=== PATIENT | female | born 1960 | race Caucasian/White ===

== ENCOUNTER 2019-08-08 21:35 | Emergency (ER) | payer OTHER ==
[~2019-08-08] VITALS: Ht 149.9 cm; Wt 56.2 kg
--- NOTE | 2019-08-08 21:38 | NUR ---
PT BIBRA 76. AAOX3. C/O "TRACH MALFUNCTION, RESISTANCE WHILE TRYING TO SUCTION." RHONCHI HEARD ON BILATERAL LOWER LOBES, PLACED ON VENT. VENT SETTINGS IN NOTES. RT AT BEDSIDE FOR TRACH. PT NOT C/O SOB NOR PAIN. VSS. SAT 98%.
--- NOTE | 2019-08-08 21:40 | NUR ---
RT NOTE LATE ENTRY: Pt rec'd trached via ambu bag 15lpm from [employer]. [facility] noted settings given from Pt's chart from facility. While suctioning pt, resistance noted, but suctioning catheter is able to pass through. Pt able to maintain adequate tidal volumes. MD aware and chest XRAY ordered. Pt awake and alert. Pt shows no signs of resp distress or SOB. Pt sx'd for thick mod amt of bloody secretions. Alarms are set and audible. Vent plugged into red outlet. Ambu bag bedside. Will continue to monitor closely. Addendum: 08/08/19 at 2300 by MIGUEL SANCHEZ RT Amended: Links added.
--- NOTE | 2019-08-08 21:41 | NUR ---
RT AT BEDSIDE
--- NOTE | 2019-08-08 21:42 | NUR ---
Destini dodson in ED - 08/08/19 at 2148 by BASSAMICTOR 115 107/71 99 RT AT BEDSIDE
--- NOTE | 2019-08-08 21:42 | NUR ---
VENT SETTINGS: AC 16, TV 450, PEEP 5. RONCHI HEARD ON BILATERAL LOWER LOBES.
--- NOTE | 2019-08-08 21:47 | NUR ---
PER RT, TRACH MIGHT BE SHORT.
--- NOTE | 2019-08-08 21:56 | NUR ---
PER [facility], NICOLÁS SHAIKH, PT CAME IN WITH A TRACH. ADMISSION DATE AT SCR 07/30/19. MADE AWARE
--- NOTE | 2019-08-08 22:07 | NUR ---
PT ABLE TO COMMUNICATE USING PAPER AND PEN. PT WROTE DOWN THAT SHE HAD TRACH PUT IN A WEEK AGO, NOT SURE WHERE. PT DENIES PAIN. VSS. WILL CONTINUE TO MONITOR.
--- NOTE | 2019-08-08 22:15 | NUR ---
XRAY AT BEDSIDE.
[2019-08-08] MEDS ORDERED: LEVOFLOXACIN 750 MG /D5W 150ML 150 ML IV ONE (22:57)
[2019-08-08] MEDS ORDERED: LEVOFLOXACIN 750 MG /D5W 150ML PIGGYBACK IV ONE (23:00)
[2019-08-08] MEDS ORDERED: ASPI-1169 GT (23:05)
[2019-08-08] MEDS ORDERED: SENN-168 GT (23:05)
[2019-08-08] MEDS ORDERED: MULT9LIQ5 GT (23:05)
[2019-08-08] MEDS ORDERED: POTA20TA83 GT (23:05)
[2019-08-08] MEDS ORDERED: FURO-145 GT (23:05)
[2019-08-08] MEDS ORDERED: FERR324T11 GT (23:05)
[2019-08-08] MEDS ORDERED: PANT40TA4 GT (23:05)
[2019-08-08] MEDS ORDERED: COLL30OI TP (23:05)
[2019-08-08] MEDS ORDERED: AMIN30LI27 GT (23:05)
[2019-08-08] MEDS ORDERED: SILV20CR13 TP (23:05)
[2019-08-08] MEDS ORDERED: HYDR-4384 GT (23:05)
[2019-08-08] MEDS ORDERED: FLUT16SP BNOSTRILS (23:05)
[2019-08-08] MEDS ORDERED: METH-406 GT (23:05)
[2019-08-08] MEDS ORDERED: OMEP20CA15 GT (23:05)
[2019-08-08] MEDS ORDERED: LEVA1.2528 IH (23:05)
--- NOTE | 2019-08-08 23:05 | NUR ---
CRIB TENDER AT BEDSIDE FOR LABS.
[2019-08-08 23:13] LABS: BASOPHILS % (AUTO) 0.1 % (0.0-2.0); EOSINOPHILS % (AUTO) 0.1 % (0.0-6.0); HEMATOCRIT 32 % (33-45); LYMPHOCYTES # (AUTO) 0.2 /CMM (0.8-4.8); LYMPHOCYTES % (AUTO) 1.2 % (20.0-44.0); MEAN CORPUSCULAR HGB CONC 31 g/dl (31.0-36.0); MEAN CORPUSCULAR VOLUME 90 fL (82-100); MONOCYTES # (AUTO) 0.8 /CMM (0.1-1.30); MONOCYTES % (AUTO) 4.5 % (2.0-12.0); NEUTROPHILS # (AUTO) 17.2 /CMM (1.8-8.9); NEUTROPHILS % (AUTO) 94.1 % (43.0-81.0); PLATELET COUNT (AUTO) 564 /CMM (150-450); RED BLOOD CELL COUNT(AUTO) 3.59 MIL/uL (4.0-5.2); WHITE BLOOD COUNT (AUTO) 18.3 K/uL (4.3-11.0)
--- NOTE | 2019-08-08 23:15 | NUR ---
PT C/O GENERALIZED PAIN 11/20, PT WROTE DOWN THAT HER BP IS USUALLY IN THE 90'S. HELD OFF THE MEDS DUE TO BP BEING IN 90'S.
[2019-08-08 23:20] LABS: CALCIUM, SERUM 8.6 mg/dL (8.5-10.1); CREATININE 0.4 mg/dL (0.6-1.3); POTASSIUM 4.4 mmol/L (3.5-5.1)
[2019-08-08 23:25] LABS: ALBUMIN 1.9 g/dL (3.4-5.0); BILIRUBIN,DIRECT 0.1 mg/dL (0.0-0.2); BILIRUBIN,TOTAL 0.3 mg/dL (0.2-1.0)
[2019-08-08] MEDS ORDERED: ONDANSETRON HCL/PF 4 MG/2 ML VIAL IV ONE (23:30)
[2019-08-08] MEDS ORDERED: MORPHINE SULFATE INJ 2 MG/ML DISP.SYRIN IV ONE (23:30)
--- NOTE | 2019-08-08 23:43 | NUR ---
Catheter inserted per sterile protocal. Immediate output 250 ML of urine, color yellow. Sent to lab.
[2019-08-08 23:46] LABS: APPEARANCE,URINE Clear (CLEAR); BILIRUBIN,URINE Negative (NEGATIVE); BLOOD, URINE Negative Ery/uL (NEGATIVE); COLOR,URINE Yellow (YELLOW); KETONES,URINE Negative (NEGATIVE); LEUKOCYTE ESTERASE ,URINE Trace (NEGATIVE); NITRITE, URINE Negative (NEGATIVE); PH,URINE 6.5 (5.0-8.0); PROTEIN,URINE 30 mg/dl (NEGATIVE); UGLUCOSE Negative (NEGATIVE); UROBILINOGEN,URINE 0.2 EU/dL (0.2)
[2019-08-09 00:04] LABS: BACTERIA,URINE Few /HPF (None Seen); RBC,URINE NONE SEEN /HPF (0-2); SQUAMOUS EPITHELIAL CELL,UR Few /HPF (None Seen)
--- NOTE | 2019-08-09 00:15 | NUR ---
Patient is resting comfortably in bed with eyes closed. Easily aroused. VSS.
[2019-08-09] MEDS ORDERED: IV NS 0.9% 500 ML BAG IV ONE (00:30)
--- NOTE | 2019-08-09 00:42 | NUR ---
DR. PERRY ON THE PHONE WITH DR. ANTON FROM [facility]
--- NOTE | 2019-08-09 02:13 | NUR ---
Location: [place] [address] FOR REPORT: [phone] [facility] ETA: [phone]
--- NOTE | 2019-08-09 02:47 | NUR ---
REPORT GIVEN TO ADELE MONZON FOR TY
[2019-08-09] MEDS ORDERED: ONDANSETRON HCL/PF 4 MG/2 ML VIAL ONE (03:09)
[2019-08-09] MEDS ORDERED: MORPHINE SULFATE INJ 2 MG/ML DISP.SYRIN ONE (03:09)
[2019-08-09 03:19] VITALS: BP 111/72
--- NOTE | 2019-08-09 03:20 | NUR ---
REPORT GIVEN TO TRANSPORT NURSE.
--- NOTE | 2019-08-09 03:33 | NUR ---
PT TRANSFERED PER [facility].
--- NOTE | 2019-08-12 13:18 | NUR ---
CALLED [facility] [phone] [phone] [facility] FAX [phone] PT ALREADY ON ISOLATION.
== END 2019-08-09 03:35 | disposition short-term general hospital (02) ==
LOC: ER 21:37
DX: J18.9 Pneumonia, unspecified organism (principal); K56.7 Ileus, unspecified; I10 Essential (primary) hypertension; J45.909 Unspecified asthma, uncomplicated; E78.5 Hyperlipidemia, unspecified; Z98.890 Other specified postprocedural states; Z88.0 Allergy status to penicillin; Z91.018 Allergy to other foods; Z91.013 Allergy to seafood; Z79.899 Other long term (current) drug therapy; Z79.82 Long term (current) use of aspirin
CPT/HCPCS: 36415; 71045; 80048; 80076; 81001; 83605; 85025; 85730; 87040 ×2; 87081; 96365; 96375; 99285; J1956; J2270; J2405; 81000-TC

== ENCOUNTER 2019-09-06 22:09 | Inpatient (IN) | payer OTHER ==
[~2019-09-06] VITALS: Ht 149.9 cm; Wt 50.3 kg
[~2019-09-06 22:09] MED LIST: AMIN30LI27 GT; ASPI-1169 GT; COLL30OI TP; FERR324T11 GT; FLUT16SP BNOSTRILS; FURO-145 GT; HYDR-4384 GT; LEVA1.2528 IH; METH-406 GT; MULT9LIQ5 GT; OMEP20CA15 GT; PANT40TA4 GT; POTA20TA83 GT; SENN-261 GT; SILV20CR13 TP
--- NOTE | 2019-09-06 22:09 | NUR ---
[facility] [address] ACCOMPANIED BY CARMINE ELENA RN, SENT BY PMD FROM [facility] C/O "L DISTAL FEMUR FRACTURE", PER REPORT, PATIENT WAS GIVEN NORCO 5-325MG AT 2030, CELEXA 100MG, AND 2MG DILAUDID AT 1800 IN THE FACILITY. TO ER BED 5, HOOKED TO MONITOR, RT AT BEDSIDE, PATIENT NOTED WITH TRACHEOSTOMY CONNECTED TO VENTILATOR WITH SETTINGS: RATE 12, TIDAL VOLUME 500, PEEP 5, O2 40%. WAS PLACED. DR TAM AT BEDSIDE. PATIENT ABLE TO COMMUNICATE BY WRITING ON A WHITEBOARD.
[2019-09-06] MEDS ORDERED: ONDANSETRON HCL/PF 4 MG/2 ML VIAL ONE (22:35)
[2019-09-06] MEDS ORDERED: MORPHINE SULFATE INJ 2 MG/ML DISP.SYRIN ONE (22:36)
--- NOTE | 2019-09-06 22:41 | NUR ---
PATIENT REFUSED XRAY SHE IS STILL IN PAIN, DOESN'T WANT TO BE MOVED AT ALL. MADE MD AWARE
[2019-09-06 22:46] LABS: BASOPHILS # (AUTO) 0.1 /CMM (0.0-0.2); BASOPHILS % (AUTO) 0.5 % (0.0-2.0); EOSINOPHILS % (AUTO) 0.4 % (0.0-6.0); HEMATOCRIT 31 % (33-45); HEMOGLOBIN 9.9 g/dL (11.5-14.8); LYMPHOCYTES # (AUTO) 3.9 /CMM (0.8-4.8); LYMPHOCYTES % (AUTO) 19.6 % (20.0-44.0); MEAN CORPUSCULAR HGB CONC 32 g/dl (31.0-36.0); MEAN CORPUSCULAR VOLUME 89 fL (82-100); MONOCYTES # (AUTO) 1.1 /CMM (0.1-1.30); MONOCYTES % (AUTO) 5.6 % (2.0-12.0); NEUTROPHILS # (AUTO) 14.8 /CMM (1.8-8.9); NEUTROPHILS % (AUTO) 73.9 % (43.0-81.0); PLATELET COUNT (AUTO) 744 /CMM (150-450)
--- NOTE | 2019-09-06 22:48 | NUR ---
[facility]
--- NOTE | 2019-09-06 22:53 | NUR ---
RECEIVED PT TRACHED ON VENT FROM AMBULANCE. PT HAS SHLY 6XLT PLACED ON AC 12, 500, 40%, +5. RN NOTIFIED WITH THE SETTINGS. 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 VENT ALARMS SET AND AUDIBLE. VENT PLUGGED INTO RED OUTLET. [facility] SU[facility]. Addendum: 09/06/19 at 2256 by DAKSHA UMANA RT Amended: Links added.
[2019-09-06 23:00] LABS: CALCIUM, SERUM 9.3 mg/dL (8.5-10.1); CREATININE 0.7 mg/dL (0.6-1.3); POTASSIUM 4.8 mmol/L (3.5-5.1)
[2019-09-06] MEDS ORDERED: ONDANSETRON HCL/PF 4 MG/2 ML VIAL IVP ONE (23:00)
[2019-09-06] MEDS ORDERED: MORPHINE SULFATE INJ 2 MG/ML DISP.SYRIN IV ONE (23:00)
[2019-09-06 23:06] LABS: ALBUMIN 3.4 g/dL (3.4-5.0); BILIRUBIN,DIRECT 0.1 mg/dL (0.0-0.2); BILIRUBIN,TOTAL 0.3 mg/dL (0.2-1.0); TOTAL PROTEIN, SERUM 7.2 g/dL (6.4-8.2)
--- NOTE | 2019-09-06 23:13 | NUR ---
PATIENT STILL AT 10/10 PS ON L THIGH AREA, MADE AWARE
[2019-09-06] MEDS ORDERED: CRAN3875 GT (23:14)
[2019-09-06] MEDS ORDERED: HYDR-4354 GT (23:14)
[2019-09-06] MEDS ORDERED: CELE100C GT (23:14)
[2019-09-06] MEDS ORDERED: ASCO500C16 GT (23:14)
[2019-09-06] MEDS ORDERED: ACET-2070 GT (23:14)
[2019-09-06] MEDS ORDERED: ZINC50TA69 GT (23:14)
[2019-09-06] MEDS ORDERED: ALBU6.7H9 IH (23:14)
[2019-09-06] MEDS ORDERED: MELA3TAB41 GT (23:14)
[2019-09-06] MEDS ORDERED: SPIR25TA6 GT (23:14)
[2019-09-06] MEDS ORDERED: SELE200T26 GT (23:14)
[2019-09-06] MEDS ORDERED: NA P133E RC (23:14)
[2019-09-06] MEDS ORDERED: BISA-79 PR (23:14)
[2019-09-06] MEDS ORDERED: MAGN400O21 GT (23:14)
[2019-09-06] MEDS ORDERED: FENTANYL PF 100MCG/2ML AMPUL ONE (23:18)
--- NOTE | 2019-09-06 23:25 | NUR ---
BP AT 77/54MMHG, MADE MD AWARE, RECEIVED VERBAL ORDER OF 500CC NS 0.9% BOLUS, CARRIED OUT
[2019-09-06] MEDS ORDERED: IV NS 0.9% 500 ML BAG IV ONE (23:30)
[2019-09-06] MEDS ORDERED: FENTANYL PF 100MCG/2ML AMPUL IV ONE (23:30)
--- NOTE | 2019-09-06 23:37 | NUR ---
REPORT GIVEN TO BARRY PRIETO RN FOR TY
[2019-09-07] VITALS (10 sets, daily range): BP systolic 80–117; BP diastolic 41–71
[2019-09-07] MEDS ORDERED: IV NS 0.9% 250 ML BAG IV ONE
--- NOTE | 2019-09-07 00:10 | NUR ---
XRAY AT BEDSIDE
--- NOTE | 2019-09-07 00:31 | NUR ---
PT REFUSING WEN CATH AT THIS TIME, AWARE
--- NOTE | 2019-09-07 00:59 | NUR ---
PT REFUSED SX AT THIS TIME.
--- NOTE | 2019-09-07 02:17 | NUR ---
PER MECCA FROM [facility], PT WILL BE TRANSFERRED TO [facility], PENDING TRANSFER INFORMATION. DR. SCHOFIELD TO CALL BACK
[2019-09-07] MEDS ORDERED: HYDROCODONE/APAP 5/325MG 1 EACH TABLET ONE (04:07)
--- NOTE | 2019-09-07 04:10 | NUR ---
PER MECCA [facility]UNC[facility] [place], AUTHORIZATION TO ADMIT THE PATIENT TO [facility]
--- NOTE | 2019-09-07 04:21 | NUR ---
DR. TAM ON THE PHONE WITH DR. GREENFIELD
--- NOTE | 2019-09-07 04:28 | NUR ---
CALLED [facility] FOR CONSULT Addendum: 09/07/19 at [address] TAM ON THE PHONE WITH CECI MELENDEZ FROM [facility]
[2019-09-07] MEDS ORDERED: HYDROCODONE/APAP 5/325MG 1 EACH TABLET GT ONE (04:30)
--- NOTE | 2019-09-07 04:38 | NUR ---
CALLED NURSING SUP FOR BED
[2019-09-07] MEDS ORDERED: FENTANYL PF 100MCG/2ML AMPUL ONE ×3 (05:11→13:12)
--- NOTE | 2019-09-07 05:15 | NUR ---
PT STILL C/O SEVERE PAIN. HYPOTENSION ALSO NOTED. MD AWARE.
[2019-09-07] MEDS ORDERED: FENTANYL PF 100MCG/2ML AMPUL IV ONE (05:30)
[2019-09-07] MEDS ORDERED: IV NS 0.9% 1,000 ML IV ONE (05:30)
--- NOTE | 2019-09-07 05:46 | NUR ---
BED 315-2
--- NOTE | 2019-09-07 05:58 | NUR ---
REPORT GIVEN TO NICOLÁS LOUIS FOR TY
--- NOTE | 2019-09-07 07:00 | NUR ---
PT TRANSFERRED PER [facility] PROTOCOL
--- NOTE | 2019-09-07 07:00 | NUR ---
CASKET LINER ADMITTING NOTE RECEIVED PT FROM ER VIA SHASHI. PT A/O X3 AND ABLE TO MAKE NEEDS KNOWN. RESPIRATIONS EVEN AND UNLABORED WITH NO S/S OF ACUTE DISTRESS OR SOB NOTED. PT COMPLAINS OF PAIN TO LEFT HIP AND LEG. PT NOTED WITH GTUBE. PT REFUSES TO BE CHANGED AND FOR ASSESSMENT DUE TO PAIN. SAFETY MEASURES IN PLACE WITH BED IN LOWEST LOCKED POSITION WITH SIDE RAILS UP X 2. ORIENTED PT TO STAFF AND ROOM. CALL LIGHT WITHIN REACH. WILL ENDORSE TO ONCOMING NURSE FOR TY.
[2019-09-07] MEDS ORDERED: ZINC1CAP2 GT (07:36)
[2019-09-07] MEDS ORDERED: HYDR-4384 GT (07:36)
[2019-09-07] MEDS ORDERED: MAGN400O6 GT (07:36)
[2019-09-07] MEDS ORDERED: LACT100027 GT (07:36)
[2019-09-07] MEDS ORDERED: CHLO473M5 MM (07:36)
[2019-09-07] MEDS ORDERED: ALBU6.7H9 IH (07:36)
[2019-09-07] MEDS ORDERED: HYDR4TAB4 GT (07:36)
[2019-09-07] MEDS ORDERED: SODI1TAB66 GT (07:36)
--- NOTE | 2019-09-07 08:00 | NUR ---
GM NOTES PT IN BED, AWAKE, ALERT AND ORIENTED, WRITES ON HER WHITEBOARD FOR COMMUNICATION, WITH COMPLAINT OF PAIN TO LEFT HIP, NOT IN DISTRESS, STILL REFUSING TO BE CHANGED BECAUSE OF PAIN, AWAITING ADMITTING ORDERS TO BE VERIFIED.
[2019-09-07] MEDS ORDERED: IV NS 0.9% 1,000 ML IV PRN ×2 (08:26→20:30)
[2019-09-07] MEDS ORDERED: ALBUTEROL SULFATE INH 18 GM HFA.AER.AD IH PRN (08:30)
[2019-09-07] MEDS ORDERED: BISACODYL (5 MG) 5 MG TABLET.DR GT PRN (08:30)
[2019-09-07] MEDS: HYDROMORPHONE 1 MG/1 ML DISP.SYRIN IV PRN ×2 (08:48→17:52)
[2019-09-07] MEDS ORDERED: ASPIRIN 81 MG TAB.CHEW GT SCH (09:00)
[2019-09-07] MEDS ORDERED: Medication Not On Formulary EA (Cran/Vitc/Mannose/Inulin/Brom (Uti-Stat Liquid) 3,875 MG GT SCH (09:00)
[2019-09-07] MEDS: PANTOPRAZOLE 40 MG/PACK PACK GT SCH (09:16)
[2019-09-07] MEDS ORDERED: PROSOURCE / PROSTAT (PYXIS) 30 ML UDC GT SCH (09:18)
[2019-09-07] MEDS: ASCORBIC ACID 500 MG TABLET GT SCH (09:19)
[2019-09-07] MEDS ORDERED: ENOXAPARIN SODIUM 40 MG/0.4 ML DISP.SYRIN SQ SCH (09:30)
[2019-09-07] MEDS ORDERED: ALBUTEROL FS 2.5 MG/0.5 ML VIAL.NEB NEB PRN (09:30)
[2019-09-07] MEDS ORDERED: ACETAMINOPHEN 650 MG/20.3 ML UDC GT PRN (09:30)
[2019-09-07] MEDS ORDERED: IPRATROPIUM NEB FS 0.5 MG/2.5 ML AMPUL.NEB NEB PRN (09:30)
[2019-09-07] MEDS: MULTIPLE VIT (LYCOPENE/FA/MV,CA,IRON,MIN/LUT)1 TAB GT SCH (10:00)
[2019-09-07] MEDS: PROSOURCE / PROSTAT (PYXIS) 30 ML UDC GT SCH (10:00)
[2019-09-07] MEDS ORDERED: BACITRACIN 50000 UNITS/VIAL ONE (11:09)
[2019-09-07] MEDS: CHLORHEXIDINE GLUCONATE 15 ML UDC MM SCH ×2 (11:31→17:53)
[2019-09-07] MEDS: FLUTICASONE PROPIONATE 16 GM BOTTLE NS SCH (11:31)
--- NOTE | 2019-09-07 11:37 | NUR ---
DIRECTOR SALES NOTES PT IN BED, AWAKE, ALERT, WRITES ON BOARD FOR COMMUNICATION, WEN CATH INSERTED, PT TOLERATED PROCEDURE WELL, PT SEEN BY JASWINDER ORNELAS, PLAN OF CARE AND SURGERY PROCEDURE DISCUSSED WITH PT, AGREED WITH PLAN, PT SIGNED CONSENT FORMS, PAIN MEDS GIVEN FOR PAIN MANAGEMENT, PICKED UP BY O.R. STAFF WITH RT IN STABLE CONDITION.
[2019-09-07] MEDS ORDERED: ALBUTEROL SULFATE INH 18 GM HFA.AER.AD IH SCH (12:00)
[2019-09-07] MEDS ORDERED: ROCURONIUM BROMIDE 50 MG/5 ML ONE (12:00)
[2019-09-07 13:00] LABS: BASOPHILS # (AUTO) 0.1 /CMM (0.0-0.2); BASOPHILS % (AUTO) 0.5 % (0.0-2.0); EOSINOPHILS % (AUTO) 0.1 % (0.0-6.0); HEMATOCRIT 33 % (33-45); LYMPHOCYTES # (AUTO) 1.5 /CMM (0.8-4.8); LYMPHOCYTES % (AUTO) 10.1 % (20.0-44.0); MEAN CORPUSCULAR HGB CONC 30 g/dl (31.0-36.0); MEAN CORPUSCULAR VOLUME 91 fL (82-100); MONOCYTES # (AUTO) 1.2 /CMM (0.1-1.30); NEUTROPHILS # (AUTO) 11.8 /CMM (1.8-8.9); NEUTROPHILS % (AUTO) 81.3 % (43.0-81.0); PLATELET COUNT (AUTO) 596 /CMM (150-450); RED BLOOD CELL COUNT(AUTO) 3.65 MIL/uL (4.0-5.2); WHITE BLOOD COUNT (AUTO) 14.6 K/uL (4.3-11.0)
--- NOTE | 2019-09-07 14:05 | NUR ---
VICE PRESIDENT SUPPLY CHAIN NOTES PT BACK FROM SURGERY, STABLE, AWAKE, TOLERATED WELL, PER BROOKS WESLEY TO START ON [facility], NOTED AND CARRIED OUT, NO BLEEDING NOTED AT LEFT HIP SURGERY SITE, DRESSING DRY AND INTACT.
[2019-09-07] MEDS ORDERED: JEVITY 1.2 CAL 1,000 ML BOTTLE GT PRN (14:30)
[2019-09-07] MEDS: IV LR 1000 ML 1,000 ML IV PRN (16:06)
[2019-09-07] MEDS: ZINC SULFATE 220 MG CAPSULE GT SCH (17:53)
[2019-09-07] MEDS: SODIUM CHLORIDE 1000 MG TABLET GT SCH (17:53)
[2019-09-07] MEDS: SENNOSIDES 8.6 MG TABLET GT SCH (18:00)
[2019-09-07] MEDS ORDERED: SELENOMETHIONINE 200 MCG GT SCH (18:00)
--- NOTE | 2019-09-07 18:50 | NUR ---
LAWN CARE WORKER NOTES PT IN BED, AWAKE, ALERT AND ORIENTED, PAIN MEDS GIVEN ORDERED, STILL WITH COMPLAINT OF PAIN, PT REFUSED SKIN ASSESSMENT AND PHOTOS, STATED IN WRITING THAT SHE STILL HAS PAIN, PT ONLY ALLOWED PHOTO OF GT SITE, REFUSED TO BE REPOSITIONED, F/C DRAING WELL WITH CLEAR, YELLOW URINE, GT FLUSHING WELL, KEPT CLEAN, DRY AND COMFORTABLE, IV FLUIDS INFUSING WELL, ALL NEEDS ATTENDED.
--- NOTE | 2019-09-07 19:30 | NUR ---
pattern grader supervisor: received report from tae mcdonnell at 1900. [facility] dependent with ff setting ac12 tv 500 fio2 40% peep 5, shiley 6 xlt . sinus tachy hr 120. pt a/o x4 able to communicate using her white board. pt has gtube in placed. patent and flushing well, clamped. no gtube feeding pump available on all unit, central supply aware journalism internship aware, md aware. iv access patent and flushing well, infusing with lr at 75ml/hr. pt c/o so much pain 02/20 requesting for pain medication. pt has naylor catheter in placed. bag draining via gravity. pt refusing scd education provided made aware about venous thromboembolism, also pt refusing skin assessment and photo, she added she doesnt want to be turn/move and reposition, educate pt regarding possibility of developing pressure injury. safety precautions for fall initiated, call light in reach will continue monitoring pt.
[2019-09-07] MEDS: CEFAZOLIN 2 GM in IV D5W 100 ML IV SCH (19:35)
--- NOTE | 2019-09-07 19:47 | NUR ---
RT NOTE PT RECEIVED TRACHED ON MECHANICAL VENTILATION. AMBU BAG @ BEDSIDE. SX DONE, TRACH SECURED AND PATENT. ALARMS ON AND AUDIBLE. NO DISTRESS NOTED. CONT. PULSE OX CONNECTED. WILL MONITOR T/O SHIFT. Addendum: 09/07/19 at 1947 by EN NIEVES RT Amended: Links added.
--- NOTE | 2019-09-07 20:08 | NUR ---
Received an order for Covid [address] Yung, noted and carried out, NICOLÁS Hammond notified.
--- NOTE | 2019-09-07 20:15 | NUR ---
rn notes: notified md regarding low bp and high hr 87/57 hr 135-160 highest bp obtained is 93/60 manually. telephone order received to give normal saline 1L bolus now, change dilaudid to 0.5 mg ivp q3hrs prn for 8-10 pain, give norco 5/325 mg tab po q4hrs for pain alternate with tylenol 650 mg tab po q6hrs prn for pain, send ua and give levaquin 500 mg iv x1 dose and he will come for follow up in am. orders read back verfied and carried out
--- NOTE | 2019-09-07 20:20 | NUR ---
rn notes: placed pt on r/o covid, ppe utilized, discussed to pt about reason for r/o.
[2019-09-07] MEDS ORDERED: LEVOFLOXACIN 500 MG /D5W 100ML 500 MG in PREMIX 1 EA IV ONE (20:30)
[2019-09-07] MEDS ORDERED: ACETAMINOPHEN 325 MG TABLET PO PRN (20:30)
--- NOTE | 2019-09-07 20:37 | NUR ---
RN NOTES: UA COLLECTED VIA WEN PORT, CONTACTED LAB FOR VP HR DIVERSITY,ALSO STARTED PT ON 1L NS BOLUS. WILL CONTINUE MONITORING PT.
[2019-09-07 21:20] LABS: APPEARANCE,URINE SL CLOUDY (CLEAR); BILIRUBIN,URINE NEGATIVE (NEGATIVE); BLOOD, URINE LARGE Ery/uL (NEGATIVE); COLOR,URINE YELLOW (YELLOW); KETONES,URINE 15 (NEGATIVE); LEUKOCYTE ESTERASE ,URINE NEGATIVE (NEGATIVE); NITRITE, URINE NEGATIVE (NEGATIVE); PROTEIN,URINE TRACE mg/dl (NEGATIVE); UGLUCOSE NEGATIVE (NEGATIVE); UROBILINOGEN,URINE 0.2 EU/dL (0.2)
[2019-09-07] MEDS ORDERED: LEVOFLOXACIN 500 MG /D5W 100ML 100 ML IV ONE (21:40)
[2019-09-07 21:59] LABS: BACTERIA,URINE 1+ /HPF (None Seen); RBC,URINE 81-100 /HPF (0-2); SQUAMOUS EPITHELIAL CELL,UR 0-2 /HPF (None Seen); WBC,URINE 0-2 /HPF (0-3)
[2019-09-07] MEDS ORDERED: MAGNESIUM HYDROXIDE 30 ML UDC GT PRN (22:00)
[2019-09-07] MEDS ORDERED: Medication Not On Formulary EA (Melatonin 6 MG) GT SCH (22:00)
--- NOTE | 2019-09-07 22:00 | NUR ---
rn notes: pt refused to be turn, reposition, refused for bed bath. education provided to pt.
[2019-09-07] MEDS: HYDROCODONE/APAP 5/325MG 1 EACH TABLET PO PRN (22:03)
--- NOTE | 2019-09-07 22:05 | NUR ---
prn norco: notified of pt's latest bp, per md child to give norco. aware of pt c/o spasm opn left hip area s/p sx, prn norco 5/325 mg administered at this time. will continue to monitor and reassess
--- NOTE | 2019-09-07 23:25 | NUR ---
RN NOTES: COVID SWAB PERFORMED WITNESSED BY AUTO CLEANER MELLISA. SPECIMEN SENT TO LAB
[2019-09-08] VITALS (13 sets, daily range): BP systolic 93–154; BP diastolic 62–94
[2019-09-08] MEDS: JEVITY 1.2 CAL 1,000 ML BOTTLE GT PRN (00:02)
--- NOTE | 2019-09-08 00:03 | NUR ---
prn tylenol: pt c/o muscle cramps on left hip requesting for tylenol. prn tylenol 6560 mg administered via gtube,
[2019-09-08] MEDS: HYDROCODONE/APAP 5/325MG 1 EACH TABLET PO PRN ×5 (01:38→20:13)
--- NOTE | 2019-09-08 01:38 | NUR ---
prn norco: pt c/o 11/20 bilateral hip pain sharp requesting for norco, vs takena nd recorded prior to administering meds. prn norco 5/325 mg administered to pt at this time. will continue to monitor and reassess
[2019-09-08] MEDS: CEFAZOLIN 2 GM in IV D5W 100 ML IV SCH (04:00)
--- NOTE | 2019-09-08 05:33 | NUR ---
PRN NORCO: PT REQUESTING FOR PAIN MEDS, NORCO PS 7/10 ON BILATERAL HIP AREA, PRN NORCO Administered at this time.
--- NOTE | 2019-09-08 06:36 | NUR ---
end of shift report: pt tolerated [facility] vent setting well. ambu bag available at bed side, all clinical alrms audible. remains on sinus tachy hr 112. prn norco administered for c/o muscle spasm on left hip. pt remains to refused for turning and repositioning, refused am care, doesnt want to be move. education provided to pt, tile burner aware. iv access remains patent and flushing well, infusing with lr at 75ml/hr, no s/s of iv infiltration noted. remains afebrile. safety precautions for fall remains engaged, call light in reach,. will endorse to day rn for continuity of care.
--- NOTE | 2019-09-08 07:13 | NUR ---
MORTGAGE SALES MANAGER OPENING NOTES RECEIVED PATIENT IN BED, ASLEEP. PATIENT ON VENT; TOLERATING WELL. PATIENT SHOWS NO SIGN OF PAIN SUCH FACIAL GRIMACING, MOANING OR GUARDING. R HAND IV ACCESS PRESENT INTACT AND INFUSING LR 2 75 MLS/HR. J-TUBE IN PLACE INFUSING JEVITY 1.2 @ 40 MLS/HR FOR [address] PRECAUTIONS IN PLACE; BED IN LOW POSITION AND LOCKED, RAILS UP X2, CALL LIGHT WITHIN REACH. WILL CONTINUE TO MONITOR PATIENT.
[2019-09-08] MEDS: HYDROMORPHONE 1 MG/1 ML DISP.SYRIN IV PRN ×4 (08:10→22:30)
--- NOTE | 2019-09-08 08:18 | NUR ---
GRAPHIC ENGINEER NOTES PATIENT REPORTS PAIN AND ASKING FOR PAIN MEDICATION. BP IS 119/62. DR GREENFIELD ON THE FLOOR AND SAID IT IS OK TO ADMINISTER PRN DILAUDID. MEDICATION ADMINISTERED. WILL REASSESS.
[2019-09-08 08:53] LABS: ALBUMIN 2.8 g/dL (3.4-5.0); BILIRUBIN,TOTAL 0.2 mg/dL (0.2-1.0); CREATININE 0.5 mg/dL (0.6-1.3); PHOSPHORUS 2.9 mg/dL (2.5-4.9); POTASSIUM 3.9 mmol/L (3.5-5.1); TOTAL PROTEIN, SERUM 6.2 g/dL (6.4-8.2)
[2019-09-08] MEDS: ENOXAPARIN SODIUM 40 MG/0.4 ML DISP.SYRIN SQ SCH (09:00)
[2019-09-08] MEDS: PANTOPRAZOLE 40 MG/PACK PACK GT SCH (09:16)
[2019-09-08] MEDS: PROSOURCE / PROSTAT (PYXIS) 30 ML UDC GT SCH (09:16)
[2019-09-08] MEDS: ASCORBIC ACID 500 MG TABLET GT SCH (09:16)
[2019-09-08] MEDS: MULTIPLE VIT (LYCOPENE/FA/MV,CA,IRON,MIN/LUT)1 TAB GT SCH (09:16)
[2019-09-08] MEDS: CHLORHEXIDINE GLUCONATE 15 ML UDC MM SCH ×2 (09:16→17:27)
[2019-09-08] MEDS: FLUTICASONE PROPIONATE 16 GM BOTTLE NS SCH (09:17)
--- NOTE | 2019-09-08 09:41 | NUR ---
VOCATIONAL TRAINING DIRECTOR NOTES RECEIVED A CALL FROM LAB STATING PATIENT RESULT FOR HGB CAME SURPRISINGLY LOW AND THEY NEED TO VERIFY BY DOING A REDRAW. HOLDING LOVENOX WHILE RESULTS ARE NOT UP YET.
[2019-09-08 09:48] LABS: ABG BASE EXCESS -3.2 mmol/L; ABG OXYGEN SATURATION 98.4 % (92.0-98.5); ABG PCO2 39.4 mmHg (35.0-45.0); ABG PH 7.363 (7.350-7.450); ABG PO2 161.1 mmHg (75.0-100.0); AaDO2 78.8 mmHg; MetHb 0.8 % (0.0-1.5); O2Hb 97.6 % (94.0-97.0); SITE, ABG Right Radial; VENT MODE, BG AC 12 500 40% +5
[2019-09-08] MEDS: methylPREDNISolone SOD SUCC 125 MG/2ML VIAL IV SCH ×2 (10:00→17:27)
--- NOTE | 2019-09-08 10:30 | NUR ---
MS RN NOTES PATIENT REFUSES ANY CARE; BED CHANGED AND GOWN WELL. PATIENT WROTE ON HER BOARD NOT TO TOUCH HER AND ITS OK THAT SHE IS WET. SHE REFUSES TO BE MOVED OR ROLLED. WILL TRY AGAIN LATER.
--- NOTE | 2019-09-08 11:04 | NUR ---
MS RN NOTES PATIENT IN PAIN. REQUESTS PAIN MEDICATION. PRN NORCO 5-325 AVAILABLE AND WILL ADMINISTER.
[2019-09-08 11:37] LABS: BASOPHILS % (AUTO) 0.1 % (0.0-2.0); HEMATOCRIT 21 % (33-45); LYMPHOCYTES % (AUTO) 8.6 % (20.0-44.0); MEAN CORPUSCULAR HGB CONC 33 g/dl (31.0-36.0); MEAN CORPUSCULAR VOLUME 89 fL (82-100); MONOCYTES # (AUTO) 1.7 /CMM (0.1-1.30); MONOCYTES % (AUTO) 13.7 % (2.0-12.0); NEUTROPHILS # (AUTO) 9.5 /CMM (1.8-8.9); NEUTROPHILS % (AUTO) 77.6 % (43.0-81.0); PLATELET COUNT (AUTO) 466 /CMM (150-450); RED BLOOD CELL COUNT(AUTO) 2.36 MIL/uL (4.0-5.2); WHITE BLOOD COUNT (AUTO) 12.2 K/uL (4.3-11.0)
[2019-09-08 11:43] LABS: HEMOGLOBIN 6.8 g/dL (11.5-14.8)
[2019-09-08] MEDS ORDERED: IPRATROPIUM/ALBUTEROL INHALER IH SCH (12:00)
[2019-09-08] MEDS: ALBUTEROL SULFATE 8 GM HFA.AER.AD IH SCH ×4 (12:00→23:48)
--- NOTE | 2019-09-08 13:26 | NUR ---
MS MONZON NOTES 1200 VENTONIL UNABLE TO ADMINISTER. PATIENT IS NOT ABLE TO FOLLOW DIRECTIONS AT THIS TIME. Addendum: 09/08/19 at 1347 by MATRA BRADY RN GLEN NOTE
--- NOTE | 2019-09-08 13:47 | NUR ---
RADIOLOGIC TECHNOLOGY INSTRUCTOR NOTES PATIENT IN PAIN (HIPS). PRN PAIN MEDICATION ADMINISTERED (DILAUDID). WILL REASSESS.
[2019-09-08 14:41] LABS: LYMPHOCYTES % (MANUAL) 9 % (16-48); MONOCYTES % (MANUAL) 9 % (0-11.0); NEUTROPHILS % (MANUAL) 82 (42-76)
--- NOTE | 2019-09-08 16:31 | NUR ---
DOOR CUTTER NOTES PATIENT TRANSFERRED TO [facility]. PT ON VENT...TRANSFERRED WITH RT PRESENT. OXYGENATION 100%. RECEIVING NURSE FATIMAH. REPORT GIVEN.
--- NOTE | 2019-09-08 16:45 | NUR ---
RN NOTE Received pt from 315. On vent and GT. No signs of distress. 2 RT on bedside. No signs of pain or discomfort at this time. Will cont to monitor.
[2019-09-08] MEDS: SODIUM CHLORIDE 1000 MG TABLET GT SCH (17:29)
[2019-09-08] MEDS: ZINC SULFATE 220 MG CAPSULE GT SCH (17:29)
[2019-09-08] MEDS: SENNOSIDES 8.6 MG TABLET GT SCH (17:29)
--- NOTE | 2019-09-08 18:45 | NUR ---
RN CLOSING NOTE Patient in bed asleep. No signs of distress. On mechanical vent AC 12 tv 500 Peep 5 fio2 40%. o2 sat is 100% Patient is AO x4 communicates with her white board. Patient has PEG running Jevity 1.5 @ 40ml/hr. Patient has R hand 20g running LR 75ml/hr. No signs of pain or discomfort. Turned and repositioned q2h. Kept clean and dry. All due meds given. Vital signs within normal limits. Safety measure reinforced. Bed locked and on lowest position. Call light within reach. Siderails up x2. Will endorse to lpn medical assistant nurse for claudine.
--- NOTE | 2019-09-08 19:30 | NUR ---
OIL AND GAS DRAFTER NOTE, Patient in awake in bed on mechanical ventilator tolerated settings well, communicates with the board, nsr/tachy on tele monitor with hr 90s and low 100s, iv access in right hand 20g running LR 75ml/hr, patent and intact, with order for blood transfusion, will transfuse as order, gt in placed and feeding infusing as ordered, f/c in placed patency intact with yellow clear urine noted, Safety measure in placed, Bed locked and on lowest position, Call light within reach., s/r of bed up x2, Will continue to monitor patient closely.
--- NOTE | 2019-09-08 19:30 | NUR ---
RN NOTES, PATIENT S/P LEFT HIP SURGERY DRESSING INTACT, NO BLEEDING NOTED, AFEBRILE, ON PAIN MANAGEMENT, WILL ADMINISTER MEDICATION ORDERED.
[2019-09-09] VITALS (15 sets, daily range): BP systolic 110–146; BP diastolic 72–99
[2019-09-09] MEDS: HYDROMORPHONE 1 MG/1 ML DISP.SYRIN IV PRN ×5 (02:39→21:01)
--- NOTE | 2019-09-09 03:30 | NUR ---
RN NOTES, PATIENT ENDORSED TO NICOLÁS PEARCE FOR CONTINUATION OF CARE NO DISTRESS NOTED PATIENT TIN STABLE CONDITION, NO SOB/RESP DISTRESS NOTED, ON PAIN MANAGEMENT DONE WITH SECOND UNIT OF BLOOD, VS STABLE, AFEBRILE.
--- NOTE | 2019-09-09 03:56 | NUR ---
ROUND UP RING HAND OPENING NOTE RECEIVED PATIENT IN BED. A/OX4. ABLE TO COMMUNICATE WITH import2 BOARD. EXTERNAL TELE MONITOR READS NSR - ST. ON A MECHANICAL VENT SETTINGS AC 12. TV 500, FIOS 40, PEEP 5. IN NO RESP DISTRESS. NO S/S PAIN AT THIS TIME. IN NO APPARENT DISTRESS. IV ACCESS IN RIGHT HAND #20 RUNNING LR@75ML/HR. WEN CATHETER IS PRESENT, DRAINING TO GRAVITY, URINE IS YELLOW AND CLEAR. GTUBE IS PRESENT RUNNING JEVITY @40ML/HR. BED IS LOW AND LOCKED HOB ELEVATED IN HIGH FOWLERS, SIDE RIALS UP X2, CALL LIGHT WITHIN REACH. WILL CONTINUE TO MONITOR.
[2019-09-09] MEDS: IV LR 1000 ML 1,000 ML IV PRN (05:13)
[2019-09-09] MEDS: ALBUTEROL SULFATE 8 GM HFA.AER.AD IH SCH ×4 (05:18→23:19)
--- NOTE | 2019-09-09 05:57 | NUR ---
IT RISK AND ASSURANCE SENIOR MANAGER NOTE ADMINISTERED PRN DILAUDID 0.5 MG D/T C/O PAIN 12/21 IN LEGS. WILL CONTINUE TO MONITOR. Addendum: 09/09/19 at 0600 by GENA BEGUM RN WASTE WITNESSED BY WASTE PLACED IN RX DESTROYER.
--- NOTE | 2019-09-09 06:31 | NUR ---
CLERICAL CAR CHECKER CLOSING NOTE PATIENT IN BED. A/OX4. COMMUNICATE WITH WHITE BOARD. EXTERNAL TELE MONITOR READS NSR - ST. ON A MECHANICAL VENT SETTINGS AC 12. TV 500, FIOS 40, PEEP 5. NO DISTRESS. PAIN MANAGED WITH DILAUDID. IV ACCESS MAINTAINED IN RIGHT HAND #20 RUNNING 1UNIT PRBC@125ML/HR. WEN CATHETER IS MAINTAINED, DRAINING TO GRAVITY, URINE IS YELLOW AND CLEAR, OUTPUT 300ML. GTUBE IS MAINTAINED RUNNING JEVITY @40ML/HR. BED REMAINS LOW AND LOCKED HOB ELEVATED IN HIGH FOWLERS, SIDE RIALS UP X2, CALL LIGHT WITHIN REACH. WILL ENDORSE TO NEXT SHIFT.
[2019-09-09] MEDS: HYDROCODONE/APAP 5/325MG 1 EACH TABLET PO PRN ×3 (07:44→19:53)
[2019-09-09] MEDS: MULTIPLE VIT (LYCOPENE/FA/MV,CA,IRON,MIN/LUT)1 TAB GT SCH (08:06)
[2019-09-09] MEDS: methylPREDNISolone SOD SUCC 125 MG/2ML VIAL IV SCH ×2 (08:07→17:25)
[2019-09-09] MEDS: CHLORHEXIDINE GLUCONATE 15 ML UDC MM SCH ×2 (08:07→17:25)
[2019-09-09] MEDS: ASCORBIC ACID 500 MG TABLET GT SCH (08:07)
[2019-09-09] MEDS: ENOXAPARIN SODIUM 40 MG/0.4 ML DISP.SYRIN SQ SCH (08:08)
[2019-09-09] MEDS: PANTOPRAZOLE 40 MG/PACK PACK GT SCH (08:08)
--- NOTE | 2019-09-09 08:09 | NUR ---
PATRIOT MISSILE AIR DEFENSE ARTILLERY NOTES LOVENOX NOT ADMINISTRATED DUE TO LOW HTC6.8
[2019-09-09] MEDS: FLUTICASONE PROPIONATE 16 GM BOTTLE NS SCH (08:12)
[2019-09-09] MEDS: PROSOURCE / PROSTAT (PYXIS) 30 ML UDC GT SCH (08:13)
[2019-09-09 08:35] LABS: BASOPHILS % (AUTO) 0.1 % (0.0-2.0); HEMATOCRIT 42 % (33-45); HEMOGLOBIN 13.8 g/dL (11.5-14.8); LYMPHOCYTES # (AUTO) 0.5 /CMM (0.8-4.8); LYMPHOCYTES % (AUTO) 4.1 % (20.0-44.0); MEAN CORPUSCULAR HGB CONC 33 g/dl (31.0-36.0); MEAN CORPUSCULAR VOLUME 91 fL (82-100); MONOCYTES # (AUTO) 1.4 /CMM (0.1-1.30); NEUTROPHILS % (AUTO) 83.8 % (43.0-81.0); PLATELET COUNT (AUTO) 443 /CMM (150-450); RED BLOOD CELL COUNT(AUTO) 4.65 MIL/uL (4.0-5.2)
[2019-09-09] MEDS ORDERED: FERR325T23 PO (08:35)
[2019-09-09 08:47] LABS: CALCIUM, SERUM 9.5 mg/dL (8.5-10.1); CREATININE 0.7 mg/dL (0.6-1.3); POTASSIUM 4.3 mmol/L (3.5-5.1)
--- NOTE | 2019-09-09 09:00 | NUR ---
Patient refused chest x-xray this morning at 0530
--- NOTE | 2019-09-09 11:27 | NUR ---
WOUND CARE CONSULT: PT REFUSING WOUND CONSULT AND PHOTO/WOUND ASSESSMENT. PER SENDING FACILITY, PT HAS BACK AND SACRAL WOUNDS, PRESENT ON ADMISSION. RECOMMEND SURGICAL CONSULT. DR JC NOTIFIED OF CONSULT REQUEST. DISCUSSED SKIN PROTECTION WITH NURSING STAFF AND TOOTH CUTTER SPUR. WILL SEE PRN.
[2019-09-09] MEDS ORDERED: Z GUARD REMEDY 2 OZ OINT TP PRN (11:30)
[2019-09-09] MEDS: Z GUARD REMEDY 2 OZ OINT TP SCH (11:57)
[2019-09-09] MEDS: JEVITY 1.2 CAL 1,000 ML BOTTLE GT PRN (14:21)
[2019-09-09] MEDS: SODIUM CHLORIDE 1000 MG TABLET GT SCH (17:23)
[2019-09-09] MEDS: ZINC SULFATE 220 MG CAPSULE GT SCH (17:23)
[2019-09-09] MEDS: SENNOSIDES 8.6 MG TABLET GT SCH (17:25)
--- NOTE | 2019-09-09 19:25 | NUR ---
STAMPING DIE MAKER OPENING NOTES RECEIVED PATIENT FROM MORNING SHIFT, ALERT AND ORIENTED X 3. WRITES ON BOARD TO COMMUNICATE. BREATHING REGULAR AND UNLABORED ON MECHANICAL VENTILATOR, CURRENT SETTINGS TOLERATING WELL. RIGHT HAND G20 IV LINE INTACT AND PATENT, FLUSHING WELL WITH NO BLEEDING OR S/S OF INFILTRATION NOTED. ON CARDIAC MONITORING WITH NSR AT 99bpm. GTUBE INTACT WITH NO RESIDUAL ASPIRATED. ON ASPIRATION PRECAUTIONS. WEN CATH PATENT, DRAINING CLEAR YELLOW URINE. NO COMPLAINTS OF PAIN/DISCOMFORT REPORTED AT THIS TIME. BED LOW AND LOCKED ON SEMI FOWLERS POSITION. CALL LIGHT IN REACH. WILL CONTINUE TO MONITOR.
--- NOTE | 2019-09-09 19:27 | NUR ---
BOARDING KENNEL OR CATTERY OPERATOR NOTES PATIENT IN BED IN STABLE CONDITION NO SOB OR DISCOMFORT NOTED AT THIS TIME. NO MAJOR CHANGES NOTED DURING SHIFT. PATIENT REFUSED TO BE TURNED . EXPLAINED THE CONSEQUENCES OF DEVELOPING PRESSURE ULCERS BUT SHE INSIST NOT TO BE TURNED. ALL NEEDS ATTENDED. REPORT GIVEN TO SOCIOLOGY FACULTY MEMBER NURSE.
--- NOTE | 2019-09-09 20:00 | NUR ---
YARN FINISHER NOTES REFUSED SIGNING CONSENT FOR WOUND DEBRIDEMENT PER PATIENT "ITS TOO PAINFUL TO DO ANYTHING LETS TALK ABOUT IT TOMORROW". CHARGE NURSE NOTIFIED.
[2019-09-09] MEDS: DAKINS QUARTER STRENGTH (0.125%) 480 ML BOTTLE TOP SCH (21:11)
[2019-09-09] MEDS: HYDROGEL DRESSING 90 GM TUBE TP SCH (21:12)
[2019-09-09] MEDS: THERAHONEY GEL 1.5 OZ TUBE TP SCH (21:12)
[2019-09-10] VITALS: BP 142/94
[2019-09-10] MEDS: HYDROMORPHONE 1 MG/1 ML DISP.SYRIN IV PRN ×5 (01:03→12:56)
[2019-09-10 04:00] VITALS: BP 142/91
[2019-09-10] MEDS: ONDANSETRON HCL/PF 4 MG/2 ML VIAL IVP PRN ×2 (04:48→10:43)
[2019-09-10] MEDS: ALBUTEROL SULFATE 8 GM HFA.AER.AD IH SCH (05:26)
--- NOTE | 2019-09-10 06:30 | NUR ---
BOLT HEADER CLOSING NOTES PATIENT IN BED ALERT AND ORIENTED X 3. AFEBRILE WITH NO S/S OF DISTRESS OBSERVED, ON MECHANICAL VENTILATOR, CURRENT SETTINGS TOLERATING WELL. RIGHT HAND G20 IV LINE PATENT AND FLUSHING WELL. MAINTAINED ON CARDIAC MONITORING WITH NSR AT 100bpm. GTUBE INTACT ON-GOING FEEDING TOLERATING WELL. WEN CATH PATENT, DRAINING CLEAR YELLOW URINE 500cc OUTPUT. COMPLAINED OF 2/10 LEFT LEG/HIP PAIN, NON-PHARMACOLOGICAL INTERVENTIONS PROVIDED. BED LOW AND LOCKED ON SEMI FOWLERS POSITION. CALL LIGHT IN REACH. WILL ENDORSE TO MORNING SHIFT FOR TY.
[2019-09-10 08:00] VITALS: BP 149/97
[2019-09-10] MEDS: methylPREDNISolone SOD SUCC 125 MG/2ML VIAL IV SCH (09:00)
[2019-09-10] MEDS: Z GUARD REMEDY 2 OZ OINT TP SCH (09:00)
[2019-09-10] MEDS: ENOXAPARIN SODIUM 40 MG/0.4 ML DISP.SYRIN SQ SCH (09:00)
[2019-09-10] MEDS: DAKINS QUARTER STRENGTH (0.125%) 480 ML BOTTLE TOP SCH (09:00)
[2019-09-10] MEDS: THERAHONEY GEL 1.5 OZ TUBE TP SCH (09:00)
[2019-09-10] MEDS: ASCORBIC ACID 500 MG TABLET GT SCH (09:00)
[2019-09-10] MEDS: PROSOURCE / PROSTAT (PYXIS) 30 ML UDC GT SCH (09:00)
[2019-09-10] MEDS: FLUTICASONE PROPIONATE 16 GM BOTTLE NS SCH (09:00)
[2019-09-10] MEDS: PANTOPRAZOLE 40 MG/PACK PACK GT SCH (09:00)
[2019-09-10] MEDS: HYDROGEL DRESSING 90 GM TUBE TP SCH (09:00)
[2019-09-10] MEDS: MULTIPLE VIT (LYCOPENE/FA/MV,CA,IRON,MIN/LUT)1 TAB GT SCH (09:00)
[2019-09-10] MEDS: CHLORHEXIDINE GLUCONATE 15 ML UDC MM SCH (09:00)
[2019-09-10] MEDS ORDERED: TRAMADOL HCL 50 MG TABLET PO PRN (10:00)
--- NOTE | 2019-09-10 11:24 | NUR ---
PATIENT A&O X3. PATIENT HAVING STOMACH PAIN. MEDICATION GIVEN INCLUDING PAIN MEDICATION AND MEDICATION FOR N/V. PAUSED TUBE FEEDING AT 11:15. PATIENT STATED SHE WANTED TO SLEEP WITHOUT TUBE FEEDING RUNNING. WILL RESUME TUBE FEEDING LATER. PATIENT IS CURRENTLY RESTING. BED IN LOWEST POSITION. CALL LIGHT IN REACH. WILL CONTINUE TO MONITOR PATIENT THROUGHOUT SHIFT.
[2019-09-10 12:00] VITALS: BP 143/84
--- NOTE | 2019-09-10 15:04 | NUR ---
pATIENT DISHCHARGED AND REPORT GIVEN TO ADMITTING FACILITY.
[2019-09-11] MEDS ORDERED: ACET160S GT (09:25)
[2019-09-11] MEDS ORDERED: MELA1TAB15 GT (09:25)
[2019-09-11] MEDS ORDERED: ASCO500T10 GT (09:25)
[2019-09-11] MEDS ORDERED: HYDR-4354 GT (09:25)
[2019-09-11] MEDS ORDERED: AMIN30LI2 GT (09:25)
[2019-09-11] MEDS ORDERED: FERR220S2 GT (09:25)
== END 2019-09-10 15:03 | DRG 480 ==
LOC: ER 22:10 → TELE 09-07 05:55 → MED 09-08 09:43 → TELE 09-08 11:51 → TELE1 09-08 16:00
PROVIDERS: ADMIT Internal Medicine; ATTEND Internal Medicine
PROC: 5A1945Z Respiratory Ventilation, 24-96 Consecutive Hours (ICD-10-PCS; principal; 2019-09-07)
PROC: 0QS706Z Reposition Left Upper Femur with Intramedullary Internal Fixation Device, Open Approach (ICD-10-PCS; principal; 2019-09-07)
PROC: 30233N1 Transfusion of Nonautologous Red Blood Cells into Peripheral Vein, Percutaneous Approach (ICD-10-PCS; 2019-09-08)
DX: M84.459A Pathological fracture, hip, unspecified, initial encounter for fracture (principal); L89.124 Pressure ulcer of left upper back, stage 4; L89.154 Pressure ulcer of sacral region, stage 4; L89.894 Pressure ulcer of other site, stage 4; L89.223 Pressure ulcer of left hip, stage 3; J96.10 Chronic respiratory failure, unspecified whether with hypoxia or hypercapnia; N17.9 Acute kidney failure, unspecified; Z99.11 Dependence on respirator [ventilator] status; E46 Unspecified protein-calorie malnutrition; Z87.311 Personal history of (healed) other pathological fracture; I10 Essential (primary) hypertension; E78.5 Hyperlipidemia, unspecified; J44.9 Chronic obstructive pulmonary disease, unspecified; D64.9 Anemia, unspecified; D72.829 Elevated white blood cell count, unspecified; Z93.1 Gastrostomy status; Z93.0 Tracheostomy status; R73.9 Hyperglycemia, unspecified; S01.80XA Unspecified open wound of other part of head, initial encounter; X58.XXXA Exposure to other specified factors, initial encounter; Y93.9 Activity, unspecified; Y92.129 Unspecified place in nursing home as the place of occurrence of the external cause; Z68.22 Body mass index [BMI] 22.0-22.9, adult
CPT/HCPCS: 31720; 36415; 36600; 71045-TC; 73502; 73552; 73560-TC; 80048-TC; 80053-TC; 80061-TC; 80076-TC; 81000-TC; 82728-TC; 82803-TC; 83540-TC; 83735-TC; 84100-TC; 84439-TC; 84443-TC; 84484-TC; 85025-TC; 85730-TC; 86850-TC; 86921-TC; 87081-TC; 93307-TC; 94002-TC; 94003-TC; 94640; 94760-TC; 94762-TC; 99082-TC; A4216; A4623; A6209; A6248; A6253; A6403; C1713; G0378; J0690; J1170; J1650; J1956; J2270; J2370; J2405; J2930; J3010; J3490; J7030; J7040; J7050; J7060; J7120; P9016-BL

== ENCOUNTER 2019-09-11 08:46 | Emergency (ER) | payer OTHER ==
[~2019-09-11] VITALS: Ht 147.3 cm; Wt 52.2 kg
[~2019-09-11 08:46] MED LIST changes: +ACET-2070 GT; +ALBU6.7H9 IH; +ASCO500C16 GT; +BISA-79 PR; +CELE100C GT; +CHLO473M5 MM; -COLL30OI TP; +CRAN3875 GT; -FERR324T11 GT; +FERR325T23 PO; -FURO-145 GT; +HYDR-4354 GT; -HYDR-4384 GT; +HYDR4TAB4 GT; +LACT100027 GT; -LEVA1.2528 IH; +MAGN400O6 GT; +MELA3TAB41 GT; +NA P133E RC; -PANT40TA4 GT; +SELE200T26 GT; -SILV20CR13 TP; +SODI1TAB66 GT; +ZINC1CAP2 GT
--- NOTE | 2019-09-11 08:46 | NUR ---
PT BIBRA86 FROM [facility] FOR LABORED BREATHING. TRACH VENTED PATIENT, PT IS AAOX3 NON VERBAL, ON MECH VENT VIA TRACH, HOOKED TO AUTOMOBILE BRAKES BONDER, KEPT RESTED AND COMFORTABLE, WILL CONTINUE TO MONITOR.
--- NOTE | 2019-09-11 08:47 | NUR ---
RT AT BEDSIDE FOR MECH VENT SET UP.
--- NOTE | 2019-09-11 08:48 | NUR ---
PT SEEN AND EXAMINED BY .
--- NOTE | 2019-09-11 08:50 | NUR ---
IV LINE ESTABLISHED, BLOOD DRAWN AND SENT TO LAB.
--- NOTE | 2019-09-11 09:05 | NUR ---
BEVELER AT BEDSIDE FOR XRAY.
[2019-09-11 09:06] LABS: BASOPHILS # (AUTO) 0.1 /CMM (0.0-0.2); BASOPHILS % (AUTO) 0.5 % (0.0-2.0); HEMATOCRIT 42 % (33-45); HEMOGLOBIN 13.5 g/dL (11.5-14.8); LYMPHOCYTES # (AUTO) 2.9 /CMM (0.8-4.8); LYMPHOCYTES % (AUTO) 14.4 % (20.0-44.0); MEAN CORPUSCULAR HGB CONC 32 g/dl (31.0-36.0); MEAN CORPUSCULAR VOLUME 92 fL (82-100); MONOCYTES % (AUTO) 9.8 % (2.0-12.0); NEUTROPHILS % (AUTO) 75.3 % (43.0-81.0); PLATELET COUNT (AUTO) 543 /CMM (150-450); RED BLOOD CELL COUNT(AUTO) 4.51 MIL/uL (4.0-5.2)
[2019-09-11 09:12] LABS: CREATININE 0.6 mg/dL (0.6-1.3); POTASSIUM 4.1 mmol/L (3.5-5.1)
[2019-09-11] MEDS ORDERED: HYDR-4354 GT (09:25)
[2019-09-11] MEDS ORDERED: ASCO500T10 GT (09:25)
[2019-09-11] MEDS ORDERED: MELA1TAB15 GT (09:25)
[2019-09-11] MEDS ORDERED: ACET160S GT (09:25)
[2019-09-11] MEDS ORDERED: AMIN30LI2 GT (09:25)
[2019-09-11] MEDS ORDERED: FERR220S2 GT (09:25)
[2019-09-11 09:34] LABS: ABG BASE EXCESS 3.9 mmol/L; ABG OXYGEN SATURATION 94.6 % (92.0-98.5); ABG PCO2 76.7 mmHg (35.0-45.0); ABG PH 7.259 (7.350-7.450); ABG PO2 81.3 mmHg (75.0-100.0); AaDO2 152.3 mmHg; COHb 0.5 % (0.5-1.5); MetHb 0.3 % (0.0-1.5); O2Hb 93.8 % (94.0-97.0); PEEP,BG 5 cm H2O; SITE, ABG Right Radial; VT, ABG 350 mL
[2019-09-11] MEDS ORDERED: AZITHROMYCIN 500 MG in IV D5W 250 ML IV STA (09:57)
[2019-09-11] MEDS ORDERED: CEFTRIAXONE 1 G in IV D5W 50 ML IV ONE (10:00)
[2019-09-11] MEDS ORDERED: FUROSEMIDE 40 MG/4 ML VIAL IV ONE (10:00)
[2019-09-11] MEDS ORDERED: CEFTRIAXONE 1GM BAG (ER ONLY) 50 ML IV ONE (10:18)
[2019-09-11] MEDS ORDERED: FUROSEMIDE 40 MG/4 ML VIAL ONE (10:19)
[2019-09-11] MEDS ORDERED: AZITHROMYCIN 500 MG VIAL ONE (10:19)
--- NOTE | 2019-09-11 10:35 | NUR ---
LACTIC ACID 2.4
--- NOTE | 2019-09-11 11:46 | NUR ---
CALLED [facility] [phone] KONG
[2019-09-11] MEDS ORDERED: LORAZEPAM INJ 2 MG/ML VIAL ONE (11:52)
[2019-09-11] MEDS ORDERED: LORAZEPAM INJ 2 MG/ML VIAL IV ONE (12:00)
--- NOTE | 2019-09-11 12:01 | NUR ---
AT BEDSIDE FOR EVAL.
[2019-09-11] MEDS ORDERED: ENOXAPARIN SODIUM 40 MG/0.4 ML DISP.SYRIN SQ ONE (12:30)
[2019-09-11] MEDS ORDERED: ENOXAPARIN SODIUM 100 MG/ML DISP.SYRIN SQ ONE (12:37)
[2019-09-11 12:59] LABS: BILIRUBIN,DIRECT 0.5 mg/dL (0.0-0.2); BILIRUBIN,TOTAL 0.8 mg/dL (0.2-1.0)
--- NOTE | 2019-09-11 13:00 | NUR ---
VENT SETTING: AC:16, 02:50%,TV:400,PEEP:5
--- NOTE | 2019-09-11 13:12 | NUR ---
DR GIN THEODORE
[2019-09-11] MEDS ORDERED: ACETAMINOPHEN 325 MG TABLET PO PRN (14:00)
[2019-09-11] MEDS ORDERED: ONDANSETRON HCL/PF 4 MG/2 ML VIAL IVP PRN (14:00)
--- NOTE | 2019-09-11 15:09 | NUR ---
PT IS BACK FROM THE SCAN.
[2019-09-11] MEDS ORDERED: IV D5/ 0.9% NACL 1,000 ML IV PRN (15:30)
[2019-09-11] MEDS ORDERED: IPRATROPIUM NEB FS 0.5 MG/2.5 ML AMPUL.NEB NEB SCH (15:30)
[2019-09-11] MEDS ORDERED: MEROPENEM 1,000 MG in IV NS 0.9% 100 ML IV SCH (16:00)
[2019-09-11] MEDS ORDERED: methylPREDNISolone SOD SUCC 125 MG/2ML VIAL IV SCH (17:00)
[2019-09-11] MEDS ORDERED: FUROSEMIDE 20 MG/2 ML VIAL IV SCH (17:00)
[2019-09-11] MEDS ORDERED: methylPREDNISolone SOD SUCC 40 MG/ML VIAL IV SCH (17:00)
[2019-09-11] MEDS ORDERED: methylPREDNISolone SOD SUCC 40 MG/ML VIAL ONE (17:14)
[2019-09-11] MEDS ORDERED: IPRATROPIUM NEB FS 0.5 MG/2.5 ML AMPUL.NEB ONE (17:21)
--- NOTE | 2019-09-11 17:24 | NUR ---
CALLED [facility] [phone] ETA IS 2100 TRIP NUMBER [place] [id number] NIK.
[2019-09-11 18:15] VITALS: BP 103/96
--- NOTE | 2019-09-11 18:34 | NUR ---
NEW UPDATE CALLED [facility] [phone] ETA IS 1730 TRIP NUMBER [place] [id number] NIK.
--- NOTE | 2019-09-11 18:40 | NUR ---
REPORT GIVEN TO NICOLÁS SERRANO FOR TY.
--- NOTE | 2019-09-11 20:37 | NUR ---
OUTPUT 750ML.
--- NOTE | 2019-09-11 20:51 | NUR ---
REPORT GIVEN TO ACE, [facility]S [facility] TRANSPORT NURSE FOR PT TRANSPORT TO [facility].
--- NOTE | 2019-09-11 20:58 | NUR ---
RT NOTE PT RECEIVED TRACHED ON MECHANICAL VENTILATION IN ER. PT AWAKE/ALERT. RANDY [address] AMBU BAG @ BEDSIDE. SX DONE, TRACH SECURED AND PATENT. ALARMS ON AND AUDIBLE. WILL CONTINUE TO MONITOR. NO DISTRESS NOTED. Addendum: 09/11/19 at 2058 by HANNA DUNCAN RT Amended: Links added.
[2019-09-12] MEDS ORDERED: ENOXAPARIN SODIUM 60 MG/0.6 ML DISP.SYRIN SQ SCH (01:00)
== END 2019-09-11 20:51 | disposition short-term general hospital (02) ==
LOC: ER 08:51
DX: A41.9 Sepsis, unspecified organism (principal); R65.20 Severe sepsis without septic shock; J96.20 Acute and chronic respiratory failure, unspecified whether with hypoxia or hypercapnia; R00.0 Tachycardia, unspecified; D72.829 Elevated white blood cell count, unspecified; D47.3 Essential (hemorrhagic) thrombocythemia; R73.9 Hyperglycemia, unspecified; I11.0 Hypertensive heart disease with heart failure; I50.9 Heart failure, unspecified; E87.2 Acidosis; J45.909 Unspecified asthma, uncomplicated; Z93.0 Tracheostomy status; Z98.890 Other specified postprocedural states; Z88.0 Allergy status to penicillin; Z91.013 Allergy to seafood; Z91.018 Allergy to other foods
CPT/HCPCS: 36415; 36600 ×2; 71045; 78580; 80048; 82247; 82248; 82803; 83605 ×2; 83880; 84484; 85025; 87040 ×2; 93005 ×2; 94640; 96365; 96367; 96372; 96375; 99291; A9540; J0456; J0696 ×2; J1650; J1940; J2060; J2185; J2920; J7030; J7060 ×2; 87081-TC

== ENCOUNTER 2019-10-07 01:24 | Inpatient (IN) | payer OTHER ==
[~2019-10-07] VITALS: Ht 147.3 cm; Wt 41.7 kg
[2019-10-07] VITALS (32 sets, daily range): BP systolic 40–122; BP diastolic 16–85
[~2019-10-07 01:24] MED LIST changes: +ACET160S GT; +AMIN30LI2 GT; -AMIN30LI27 GT; -ASCO500C16 GT; +ASCO500T10 GT; +FERR220S2 GT; -FERR325T23 PO; -HYDR4TAB4 GT; +MELA1TAB15 GT; -MELA3TAB41 GT
--- NOTE | 2019-10-07 01:25 | NUR ---
PT [facility]FIE FROM [facility] C/O LOW O2 SAT AND LOW BLOOD PRESSURE. UPON ARRIVAL PATIENT'S SATURATION WAS AT 89%. RT AT BEDSIDE. PT AAOX1, LABORED RESPIRATIONS NOTED. PT CONNECTED TO THE ELEVATOR OPERATOR SERVICE AND POX Addendum: 10/07/19 at 0149 by TOM SUPERVISOR WALL MIRROR DEPARTMENT AT BEDSIDE FOR BLOOD DRAW
--- NOTE | 2019-10-07 01:46 | NUR ---
EKG AT BEDSIDE
[2019-10-07 01:48] LABS: APPEARANCE,URINE Cloudy (CLEAR); BILIRUBIN,URINE Negative (NEGATIVE); BLOOD, URINE Trace-intact Ery/uL (NEGATIVE); COLOR,URINE Yellow (YELLOW); KETONES,URINE Negative (NEGATIVE); LEUKOCYTE ESTERASE ,URINE Small (NEGATIVE); NITRITE, URINE Negative (NEGATIVE); PROTEIN,URINE 30 mg/dl (NEGATIVE); UGLUCOSE Negative (NEGATIVE); UROBILINOGEN,URINE 0.2 EU/dL (0.2)
--- NOTE | 2019-10-07 01:54 | NUR ---
XRAY AT BEDSIDE
--- NOTE | 2019-10-07 01:57 | NUR ---
VENT SETTINGS: RT: 16 TV: 400 FIO2:100% PEEP:NO PEEP
[2019-10-07] MEDS ORDERED: IV NS 0.9% 1,000 ML BAG IV ONE ×2 (02:00→03:30)
--- NOTE | 2019-10-07 02:00 | NUR ---
RT NOTE LATE ENTRY: ABG taken and critical results noted. Results given to MD. Vent changes made per md orders. will continue to monitor closely. Addendum: 10/07/19 at 0636 by MIGUEL SANCHEZ RT Amended: Links added.
[2019-10-07 02:03] LABS: BACTERIA,URINE Moderate /HPF (None Seen); SQUAMOUS EPITHELIAL CELL,UR Few /HPF (None Seen); WBC,URINE 81-100 /HPF (0-3); YEAST,URINE Many /HPF (None Seen)
--- NOTE | 2019-10-07 02:20 | NUR ---
+3 PITTING EDEMA ON BLE. SWELLING NOTED ON BUE WELL.
[2019-10-07 02:23] LABS: ABG OXYGEN SATURATION 99.1 % (92.0-98.5); ABG PCO2 28.5 mmHg (35.0-45.0); ABG PH 7.141 (7.350-7.450); ABG PO2 514.3 mmHg (75.0-100.0); AaDO2 170.2 mmHg; COHb 0.3 % (0.5-1.5); MetHb 0.6 % (0.0-1.5); O2Hb 98.2 % (94.0-97.0); PEEP,BG 0 cm H2O; SITE, ABG Right Radial; VENT MODE, BG AC 16 400 100% +0
--- NOTE | 2019-10-07 02:34 | NUR ---
RT NOTE Pt rec'd trached Shiley 6 XLT Distal via AMBU Bag @ 15lpm. [facility] noted settings given from [employer]. Pt sx'd for thin scant amt of clear secretions. Although Peep originally at +5, peep decreased to 0 per low B/P and MD orders. Alarms are set and audible. Vent plugged into red outlet. Will continue to monitor closely. Addendum: 10/07/19 at 0238 by MIGUEL SANCHEZ RT Amended: Links added.
[2019-10-07 02:53] LABS: BASOPHILS % (AUTO) 0.2 % (0.0-2.0); EOSINOPHILS % (AUTO) 0.1 % (0.0-6.0); HEMATOCRIT 27 % (33-45); HEMOGLOBIN 8.3 g/dL (11.5-14.8); LYMPHOCYTES # (AUTO) 0.4 /CMM (0.8-4.8); LYMPHOCYTES % (AUTO) 4.2 % (20.0-44.0); MEAN CORPUSCULAR HGB CONC 30 g/dl (31.0-36.0); MEAN CORPUSCULAR VOLUME 95 fL (82-100); MONOCYTES % (AUTO) 0.2 % (2.0-12.0); NEUTROPHILS # (AUTO) 9.8 /CMM (1.8-8.9); NEUTROPHILS % (AUTO) 95.3 % (43.0-81.0); PLATELET COUNT (AUTO) 246 /CMM (150-450); RED BLOOD CELL COUNT(AUTO) 2.88 MIL/uL (4.0-5.2); WHITE BLOOD COUNT (AUTO) 10.3 K/uL (4.3-11.0)
[2019-10-07 03:04] LABS: CALCIUM, SERUM 7.8 mg/dL (8.5-10.1); CARBON DIOXIDE 13 mmol/L (21-32); CHLORIDE 106 mmol/L (98-107); CREATININE 1.2 mg/dL (0.6-1.3); GLUCOSE 94 mg/dL (74-106); POTASSIUM 3.9 mmol/L (3.5-5.1); SODIUM SERUM 139 mmol/L (136-145); UREA NITROGEN, BLOOD 47 mg/dL (7-18)
[2019-10-07 03:14] LABS: ALANINE AMINOTRANSFERASE 101 U/L (12-78); ALKALINE PHOSPHATASE 152 U/L (46-116); ASPARTATE AMINOTRANSFERASE 137 U/L (15-37); BILIRUBIN,DIRECT 0.7 mg/dL (0.0-0.2); BILIRUBIN,TOTAL 0.9 mg/dL (0.2-1.0)
[2019-10-07 03:15] LABS: TOTAL PROTEIN, SERUM 4.1 g/dL (6.4-8.2)
--- NOTE | 2019-10-07 03:21 | NUR ---
SWAB SAMPLE SENT TO LAB
[2019-10-07] MEDS ORDERED: NOREPINEPHRINE 4 MG/4 ML AMPUL IV ONE (03:48)
--- NOTE | 2019-10-07 04:01 | NUR ---
VENT SETTINGS: AC: 22/MIN PEEP:0 O2:40% TV:450
--- NOTE | 2019-10-07 04:23 | NUR ---
REPORT GIVEN TO NCIOLÁS HAN
[2019-10-07] MEDS ORDERED: VANCOMYCIN 1 GM in IV D5W 250 ML IV ONE (05:00)
[2019-10-07] MEDS ORDERED: NOREPINEPHRINE 8 MG in IV NS 0.9% 242 ML IV PRN (05:00)
[2019-10-07] MEDS ORDERED: VANCOMYCIN 1 GM VIAL ONE (05:08)
[2019-10-07] MEDS ORDERED: LEVOFLOXACIN 750 MG /D5W 150ML 150 ML IV ONE (05:08)
--- NOTE | 2019-10-07 05:54 | NUR ---
PT WAS TRANSFERRED TO ICU UNDER ACLS W/ RN, RTs AND EMT
[2019-10-07] MEDS ORDERED: IV NS 0.9% 1,000 ML IV SCH (06:00)
[2019-10-07] MEDS ORDERED: IPRATROPIUM NEB FS 0.5 MG/2.5 ML AMPUL.NEB NEB PRN (06:00)
[2019-10-07] MEDS ORDERED: ALBUTEROL FS 2.5 MG/0.5 ML VIAL.NEB NEB PRN (06:00)
[2019-10-07] MEDS ORDERED: MEROPENEM 1 G VIAL IV ONE (06:16)
[2019-10-07] MEDS ORDERED: NOREPINEPHRINE 8MG/250ML RTU 250 ML IV ONE (06:16)
[2019-10-07] MEDS ORDERED: MEROPENEM 1 G in IV NS 0.9% 100 ML IV ONE (06:30)
[2019-10-07] MEDS ORDERED: LEVOFLOXACIN 750 MG /D5W 150ML 750 MG in PREMIX 1 EA IV ONE ×2 (06:30→07:30)
[2019-10-07] MEDS ORDERED: FEE PK DOSING 1 MIN EA MC ONE (06:33)
[2019-10-07] MEDS: NOREPINEPHRINE 8 MG in IV NS 0.9% 242 ML IV PRN ×2 (06:44→09:38)
--- NOTE | 2019-10-07 06:45 | NUR ---
RN/ICU-SPOKE TO DR. GREENFIELD BY PHONE REGARDING PT. BP REMAINS LOW. MAX OUT ON LEVOPHED DRIP AT 1.0 MCG/KG/MIN. WITH ORDERS TO START CHARITY SYNEPHRINE DRIP PER PROTOCOL. SECURE CONSENT FOR PICC LINE, THEN DC CURRENT MIDLINE AFTER .
--- NOTE | 2019-10-07 07:10 | NUR ---
RN/ICU- ATTEMPTED TO GET HOLD OF FAMILY.MESSAGE LEFT TO ANNI RUANO AT [facility]. NO.[phone], RELATIONSHIP TO PT. UNKNOWN. WILL FOLLOW UP FOR PICC LINE CONSENT.
--- NOTE | 2019-10-07 07:27 | NUR ---
COLLECTION AGENT NOTE RECEIVED PT FROM ER ON [facility]. A/O X1 TO NAME. ISOLATION PRECAUTIONS FOR R/O COVID MAINTAINED. RECEIVED ON LEVO DRIP THROUGH LEFT ALEJANDRO IO. TOLERATING VENT SETTINGS. BREATHING UNLABORED. TELE-ST 120'S. GT CLAMPED. TEMP 97.8F RECTAL. WEN CATHETER IN PLACE AND DRAINING. GAVE LEVAQUIN TO NEXT SHIFT TO ADMINISTER. ALL NEEDS ATTENDED TO PROMPTLY. WILL ENDORSE TO NEXT SHIFT FOR CONTINUITY OF CARE.
--- NOTE | 2019-10-07 08:00 | NUR ---
ICU/RN PT IS CHRONIC TRACH ON THE VENT AC MODE,SAT O2-100%.ON LEVOPHED DRIP.IV FLUIDS,JUST ADMITTED FROM LONGTERM.F/C IN PLACE,ANURIC,G-TUBE CLAMPED,GENERALIZED EDEMA PRESENT .MULTIPLES WOUNDS,BRUISES AND SKIN TEARS NOTED ALL OVER THE BODY.PT IS AWAKE ,ALERT.REPOSITION FOR COMFORT.
[2019-10-07] MEDS: PHENYLEPHRINE 50 MG in IV NS 0.9% 245 ML IV PRN ×2 (08:17→14:26)
[2019-10-07] MEDS ORDERED: Z GUARD REMEDY 2 OZ OINT TP PRN (08:30)
[2019-10-07] MEDS ORDERED: Z GUARD REMEDY 2 OZ OINT TP SCH (09:00)
[2019-10-07] MEDS ORDERED: IV NS 0.9% 1,000 ML IV ONE (10:00)
--- NOTE | 2019-10-07 10:00 | NUR ---
ICU/RN ABG DONE .MD NOTIFIED.2 AMPS OF SODIUM BICARB GIVEN ORDERED,IV DRIP CHANGED PT IS ON 2 PRESSORS NOW.
[2019-10-07 10:09] LABS: ABG BASE EXCESS -20.2 mmol/L; ABG OXYGEN SATURATION 97.8 % (92.0-98.5); ABG PCO2 19.9 mmHg (35.0-45.0); AaDO2 141.3 mmHg; COHb 0.3 % (0.5-1.5); MetHb 0.1 % (0.0-1.5); O2Hb 97.4 % (94.0-97.0); SITE, ABG Left Brachial; VENT MODE, BG AC 20 450 40%
[2019-10-07] MEDS: HYDROCORTISONE SOD SUCCINATE 100 MG/2 ML VIAL IV SCH ×3 (10:28→17:18)
[2019-10-07] MEDS ORDERED: SODIUM BICARBONATE SYR 50 MEQ/50 ML DISP.SYRIN IV ONE ×3 (10:30→18:46)
[2019-10-07] MEDS ORDERED: Sodium Bicarbonate 100 MEQ in IV D5W 1,000 ML IV PRN (10:30)
[2019-10-07] MEDS ORDERED: NOREPINEPHRINE 32 MG in IV NS 0.9% 218 ML IV PRN (12:00)
[2019-10-07] MEDS ORDERED: NOREPINEPHRINE 16 MG in IV D5W 500 ML IV PRN (12:00)
[2019-10-07] MEDS ORDERED: VASOPRESSIN INJ 20 UNIT in IV NS 0.9% 39 ML IV PRN (12:30)
[2019-10-07] MEDS ORDERED: MEROPENEM 1 G in IV NS 0.9% 100 ML IV SCH ×2 (13:00→17:00)
[2019-10-07] MEDS ORDERED: VASOPRESSIN INJ 40 UNIT in IV NS 0.9% 38 ML IV PRN (13:30)
[2019-10-07] MEDS ORDERED: EPINEPHRINE (1:10,000) SYRINGE 1 MG/10 ML DISP.SYRIN ONE (16:00)
[2019-10-07] MEDS ORDERED: DEXTROSE 50%-WATER 50 ML DISP.SYRIN ONE (16:00)
--- NOTE | 2019-10-07 16:05 | NUR ---
ICU/RN ASYSTOLE ON MONITOR,CODE BLUE INITIATED.
[2019-10-07 16:26] LABS: ABG BASE EXCESS -19.3 mmol/L; ABG OXYGEN SATURATION 99.7 % (92.0-98.5); ABG PCO2 26.3 mmHg (35.0-45.0); ABG PH 7.116 (7.350-7.450); ABG PO2 428.2 mmHg (75.0-100.0); AaDO2 258.5 mmHg; COHb 0.6 % (0.5-1.5); MetHb 0.7 % (0.0-1.5); O2Hb 98.4 % (94.0-97.0); PEEP,BG 0 cm H2O; SITE, ABG Right Radial; VT, ABG 450 mL
[2019-10-07] MEDS ORDERED: SODIUM BICARBONATE SYR 50 MEQ/50 ML DISP.SYRIN ONE (16:29)
[2019-10-07] MEDS ORDERED: EPINEPHRINE (1:1000) 5 MG in IV NS 0.9% 250 ML IV PRN (16:30)
--- NOTE | 2019-10-07 16:33 | NUR ---
RT rt responded to code blue @1602. rt performed compressions. pt had rosc. pt remains on vent. will continue to monitor
[2019-10-07] MEDS ORDERED: VANCOMYCIN 500 MG in IV D5W 100 ML IV SCH (18:00)
--- NOTE | 2019-10-07 18:15 | NUR ---
ICU/RN AT 18:12 SECOND CODE BLUE INITIATED.ASYSTOLE ON MONITOR.SEE CODE BLUE RECORD.PT IS ON LEVOPHED DRIP.CHARITY,VASOPRESSIN,EPINEPHRINE DRIPS ,ON D5NS PLUS 3AMP-150MEQ SODIUM BICARB DRIP.UNABLE TO READ BP.
--- NOTE | 2019-10-07 18:31 | NUR ---
RT @1820 code blue was called. rt arrived and began compressions. pt achieved rosc. pt remains on vent. spo2 on 100% is 81% saturation. kecia fishman, aware.
[2019-10-07] MEDS ORDERED: FEE EMEERGENCY 1 MIN EA MC ONE (18:46)
[2019-10-07] MEDS ORDERED: EPINEPHRINE (1:10,000) SYRINGE 1 MG/10 ML DISP.SYRIN IVP ONE ×2 (18:46→19:02)
[2019-10-07] MEDS ORDERED: DEXTROSE 50%-WATER 50 ML DISP.SYRIN IV ONE ×2 (18:46→19:02)
--- NOTE | 2019-10-07 19:00 | NUR ---
RECEIVED PATIENT POST CODE X 2, UNRESPONSIVE.WITH TRACHEOSTOMY TO THE VENTILATOR,UNABLE TO RECORD O2 SATURATION VIA PULSE OX( NOT PICKING UP ANY SIGNAL DUE COLD EXTREMITIES AND POOR CIRCULATION).ON MULTIPLE PRESSORS ON MAXIMUM DOSE(NEOSYNEPHRINE,LEVOPHED,VASOPRESSIN AND EPINEPHRINE DRIP) FOR BP SUPPORT,PATIENT HAS NO BP BY AUTOMATIC CUFF PRESSURE READING DESPITE MULTIPLE PRESSORS.ALSO ON NACHO3 DRIP .ALL DRIPS INFUSING VIA JESSICA MID LINE.ON CONTACT /DROPLET ISOLATION (COVID 19 RESULT PENDING,SENT 10/07/19)
--- NOTE | 2019-10-07 19:30 | NUR ---
finger STICK CHECKED =65 MG/DL.
--- NOTE | 2019-10-07 19:42 | NUR ---
PATIENT PROGRESSIVELY BECAME ASYSTOLIC ,CALLED CODE.( REFER TO CODE SHEET)
--- NOTE | 2019-10-07 19:51 | NUR ---
CODE WAS CALLED OFF BY ,EXPIRATION TIME 1950
--- NOTE | 2019-10-07 20:00 | NUR ---
CALLED [facility], BODY IS RELEASED WITH REFERENCE #[id number]. SPOKE TO MARILIN
--- NOTE | 2019-10-07 20:05 | NUR ---
CALLED [facility] TO REPORT (PATIENT IS LESS THAN 24 HRS SINCE ADMISSION). SPOKE TO TYRON ,BODY IS RELEASED ,IS NOT A ME CASE
--- NOTE | 2019-10-07 20:25 | NUR ---
CALLED NEXT OF KIN LISTED IN THE FACE SHEET(PATIENT HAS NO FAMILY),SPOKE TO NALLELY AND INFORMED HER OF PATIENT'S EXPIRATION.
--- NOTE | 2019-10-07 20:26 | NUR ---
DR. GREENFIELD CALLED BACK,INFORMED HIM PATIENT AFTER ANOTHER CODE.
--- NOTE | 2019-10-07 20:31 | NUR ---
@1941 PT CODE BLUE. CPR STARTED, PT IS TRACHED CONNECTED TO THE VENT. TANO SUERO AT BEDSIDE. @1950 PT .
[2019-10-07] MEDS ORDERED: HYDROGEL DRESSING 90 GM TUBE TP SCH (21:30)
--- NOTE | 2019-10-07 21:33 | NUR ---
BODY WAS SENT TO [facility].
[2019-10-09] MEDS ORDERED: LEVOFLOXACIN 750 MG /D5W 150ML 750 MG in PREMIX 1 EA IV SCH (05:00)
== END 2019-10-07 19:51 | disposition expired | DRG 871 ==
LOC: ER 01:26 → ICU 04:17
PROVIDERS: ADMIT Internal Medicine; ATTEND Internal Medicine
PROC: 5A12012 Performance of Cardiac Output, Single, Manual (ICD-10-PCS; principal; 2019-10-07)
PROC: 05HY33Z Insertion of Infusion Device into Upper Vein, Percutaneous Approach (ICD-10-PCS; principal; 2019-10-07)
PROC: 5A1935Z Respiratory Ventilation, Less than 24 Consecutive Hours (ICD-10-PCS; principal; 2019-10-07)
DX: A41.9 Sepsis, unspecified organism (principal); L89.154 Pressure ulcer of sacral region, stage 4; L89.114 Pressure ulcer of right upper back, stage 4; E43 Unspecified severe protein-calorie malnutrition; G92 Toxic encephalopathy; J69.0 Pneumonitis due to inhalation of food and vomit; R65.21 Severe sepsis with septic shock; E87.2 Acidosis; J96.11 Chronic respiratory failure with hypoxia; N39.0 Urinary tract infection, site not specified; Z99.11 Dependence on respirator [ventilator] status; Z68.1 Body mass index [BMI] 19.9 or less, adult; J84.9 Interstitial pulmonary disease, unspecified; D64.9 Anemia, unspecified; J45.909 Unspecified asthma, uncomplicated; M41.9 Scoliosis, unspecified; Z93.0 Tracheostomy status; Z93.1 Gastrostomy status; Z87.01 Personal history of pneumonia (recurrent); Z79.82 Long term (current) use of aspirin; I10 Essential (primary) hypertension; E88.09 Other disorders of plasma-protein metabolism, not elsewhere classified; L89.626 Pressure-induced deep tissue damage of left heel; L89.616 Pressure-induced deep tissue damage of right heel; L98.8 Other specified disorders of the skin and subcutaneous tissue; L89.316 Pressure-induced deep tissue damage of right buttock; L89.136 Pressure-induced deep tissue damage of right lower back; S41.112A Laceration without foreign body of left upper arm, initial encounter; S41.111A Laceration without foreign body of right upper arm, initial encounter; X58.XXXA Exposure to other specified factors, initial encounter; Y93.9 Activity, unspecified; Y92.129 Unspecified place in nursing home as the place of occurrence of the external cause; Z96.642 Presence of left artificial hip joint; J98.4 Other disorders of lung
CPT/HCPCS: 31720; 36415; 36600; 71045-TC; 80048-TC; 80076-TC; 81000-TC; 82533; 82803-TC; 82962-TC; 83605-TC; 84484-TC; 85025-TC; 85730-TC; 87040-TC; 87081-TC; 87086-TC; 87186-TC; 92950-TC; 94002-TC; 99082-TC; A4216; A6248; A6253; C1751; G0378; J0171; J1720; J1956; J2185; J2370; J3370; J3490; J7030; J7050; J7060; J7070; U0003-CS